=== PATIENT | male | born 1940 | race Asian ===

== ENCOUNTER 2016-07-25 10:28 | Day surgery (SDC) | payer MEDICARE ==
[~2016-07-25] VITALS: Ht 157.5 cm; Wt 68.0 kg
[2016-07-25] MEDS ORDERED: SODIUM CHLORIDE 0.9% 1,000 ML IV SCH (11:00)
[2016-07-25] MEDS ORDERED: LIDOCAINE 1%, 2ML ONE (11:23)
[2016-07-25] MEDS ORDERED: FENTANYL PF 100 MCG/2ML ONE (12:06)
[2016-07-25] MEDS ORDERED: NALOXONE 1 MG/ML, 2ML ONE (12:06)
[2016-07-25] MEDS ORDERED: FLUMAZENIL 0.1 MG/1 ML, 5ML ONE (12:06)
[2016-07-25] MEDS ORDERED: MIDAZOLAM 1 MG/ML, 5ML ONE (12:06)
== END 2016-07-25 14:05 | disposition home or self-care (01) ==
LOC: OUT 10:28
PROVIDERS: ATTEND Internal Medicine Nephrology
DX: I12.9 Hypertensive chronic kidney disease with stage 1 through stage 4 chronic kidney disease, or unspecified chronic kidney disease (principal); N18.9 Chronic kidney disease, unspecified; Z86.73 Personal history of transient ischemic attack (TIA), and cerebral infarction without residual deficits; Z88.8 Allergy status to other drugs, medicaments and biological substances; M19.90 Unspecified osteoarthritis, unspecified site
CPT/HCPCS: 36415; 50200; 77012; 85610; 88300; 99156; 99157; J2250; J3010; J7030; J2310

== ENCOUNTER 2017-07-05 14:36 | Emergency (ER) | payer MEDICARE ==
[~2017-07-05] VITALS: Ht 157.5 cm; Wt 65.0 kg
[~2017-07-05 14:36] MED LIST: ALLO100T64 PO; AMLO5TAB2 PO; ASPI-515 PO; CULTURELLE; FISH1CAP PO; LEVO50TA5 PO; METO-93 PO; MULT-717 PO; MYCO360T3 PO; OMEP-110 PO
[2017-07-05] MEDS ORDERED: METO-93 PO (14:50)
[2017-07-05] MEDS ORDERED: OMEP-110 PO (14:52)
[2017-07-05] MEDS ORDERED: ASPI81TA50 PO (14:52)
[2017-07-05] MEDS ORDERED: morphine SULFATE 10 MG/ML, 1ML IVPush ONE (15:00)
[2017-07-05] MEDS ORDERED: MORPHINE SULFATE 4 MG/ML, 1ML ONE (15:03)
[2017-07-05 15:58] VITALS: BP 180/86
== END 2017-07-05 16:10 | disposition home or self-care (01) ==
LOC: ED 15:29
DX: H92.01 Otalgia, right ear (principal)
CPT/HCPCS: 96374; 99284; J2270